=== PATIENT | female | born 1975 | race Hispanic/Latino ===

== ENCOUNTER → 2017-12-23 | Outpatient (CLI) | payer MEDICAID | END | disposition home or self-care (01) | LOC: RAH 10:24 | PROVIDERS: ATTEND Internal Medicine Gastroenterology | DX: R10.13 Epigastric pain (principal); R11.2 Nausea with vomiting, unspecified | CPT/HCPCS: 78264; A9541 ==

== ENCOUNTER → 2019-06-14 | Outpatient (CLI) | payer MEDICAID | END | disposition home or self-care (01) | LOC: RAH 06:50 | PROVIDERS: ATTEND Internal Medicine Gastroenterology | DX: R10.13 Epigastric pain (principal) | CPT/HCPCS: 78264; A9541 ==

== ENCOUNTER 2019-08-16 06:22 | Day surgery (SDC) | payer MEDICAID ==
[~2019-08-16] VITALS: Ht 162.6 cm; Wt 135.6 kg
[~2019-08-16 06:22] MED LIST: ASPI-555 PO; ATOR40TA71 PO; DEXL60CA3 PO; INSU100I24 SQ; LINA145C PO; LISI2.5T2 PO; METO-408 PO; PHEN-615 PO; PROPOFOL 10 MG/ML 20ML VIAL IV ONE; SODIUM CHLORIDE 0.9% 1000ML 1,000 ML IV ONE
[2019-08-16 06:50] VITALS: BP 115/70
[2019-08-16] MEDS ORDERED: PROPOFOL 10 MG/ML 20ML VIAL IV ONE (08:13)
[2019-08-16 08:21] VITALS: BP 98/48
[2019-08-16 08:25] VITALS: BP 108/57
--- NOTE | 2019-08-16 08:25 | NUR ---
ASSESMENT PT AAOX3. PT ITCHING TO LOWER LEGS. STATES, "I'M ITCHING ALOT". NO REDNESS, IRRITATION, WELTS NOTED TO LOWER LEGS, BODY. DENIES ANY DIFFICULTY BREATHING, SOB. AT BEDSIDE. INFORMED Nelson FERGUSON CRNA OF ITCHING. ORDERS RECEIVED TO GIVE BENADRYL 25MG IV.
--- NOTE | 2019-08-16 08:30 | NUR ---
MEDICATION PT REFUSING BENADRYL. STATES IF SHE CONTINUES TO ITCH SHE WILL TAKE THE BENADRYL AT HOME. PT WANTING TO GO HOME ALREADY. INFORMED Nelson FERGUSON CRNA. PT DENIES ANY OTHER CONCERNS AT THIS TIME.
[2019-08-16 08:31] VITALS: BP 103/70
[2019-08-16 08:40] VITALS: BP 125/71
--- NOTE | 2019-08-16 08:45 | NUR ---
ITCHING PT SCRATCHING LESS TO LOWER LEGS. NO REDNESS, IRRITATION, WELTS NOTED TO ENTIRE BODY. WILL MONITOR AT HOME.
== END 2019-08-16 08:47 | disposition home or self-care (01) ==
LOC: DAH 06:22 → ENDO 06:22
PROVIDERS: ATTEND Internal Medicine
DX: R12 Heartburn (principal); R14.0 Abdominal distension (gaseous); K29.50 Unspecified chronic gastritis without bleeding; K29.80 Duodenitis without bleeding; I10 Essential (primary) hypertension; E78.5 Hyperlipidemia, unspecified; F41.9 Anxiety disorder, unspecified; F32.9 Major depressive disorder, single episode, unspecified; E11.9 Type 2 diabetes mellitus without complications; E66.01 Morbid (severe) obesity due to excess calories; M19.90 Unspecified osteoarthritis, unspecified site; D57.80 Other sickle-cell disorders without crisis; Z88.8 Allergy status to other drugs, medicaments and biological substances; Z91.040 Latex allergy status; Z90.710 Acquired absence of both cervix and uterus; Z79.82 Long term (current) use of aspirin; Z79.899 Other long term (current) drug therapy; Z98.890 Other specified postprocedural states; Z72.89 Other problems related to lifestyle; Z68.43 Body mass index [BMI] 50.0-59.9, adult; Z79.4 Long term (current) use of insulin; Z83.3 Family history of diabetes mellitus; Z82.49 Family history of ischemic heart disease and other diseases of the circulatory system; Z82.3 Family history of stroke
CPT/HCPCS: 43239; 82948 ×2; 88305; A4215; A4221; A4222; A4223; A4606; A4663; J2704 ×2; J7030